=== PATIENT | male | born 1995 | race Hispanic/Latino ===

== ENCOUNTER 2022-08-14 13:29 | Emergency (ER) | payer MEDICAID, OTHER ==
[~2022-08-14] VITALS: Ht 180.3 cm; Wt 144.2 kg
[2022-08-14 13:52] VITALS: BP 134/86
[2022-08-14] MEDS ORDERED: ORPHENADRINE CITRATE 30 MG/ML ML IM ONE (16:30)
[2022-08-14] MEDS ORDERED: KETOROLAC 30MG VIAL (30MG/ML) IM ONE (16:30)
[2022-08-14] MEDS ORDERED: CYCL10TA16 PO (16:32)
[2022-08-14] MEDS ORDERED: NAPR500T6 PO (16:32)
== END 2022-08-14 16:48 | disposition home or self-care (01) ==
LOC: EDH 13:29
DX: M25.511 Pain in right shoulder (principal); Z79.899 Other long term (current) drug therapy; Z88.6 Allergy status to analgesic agent; Z79.1 Long term (current) use of non-steroidal anti-inflammatories (NSAID)
CPT/HCPCS: 99284; 73030; 96372; J1885; J2360